=== PATIENT | male | born 1985 | race Caucasian/White ===

== ENCOUNTER 2020-01-14 11:47 | Day surgery (SDC) | payer BC, SELFPAY ==
[2020-01-14] VITALS (15 sets, daily range): BP systolic 117–157; BP diastolic 67–94; PULSE 71–112; RESP 14–18; TEMP 36.1–36.9; O2SAT 94–100; BMI 33.2
--- NOTE | ~2020-01-14 | CT_ITS ---
EXAMINATION: CT abdomen pelvis w con DATE: 01/14/2020 13:26 INDICATION: Lower abdominal pain. Low back pain. TECHNIQUE: Computed tomography (CT) of the abdomen and pelvis was performed with 100 cc Omnipaque 350 intravenous contrast. The dose-length product was 1207.35 mGy-cm. Automated exposure control and ite rative reconstruction technique were employed. COMPARISON: CT dated 12/16/2018 FINDINGS: Lung bases are unremarkable. Heart size normal. No significant pleural or pericardial effus ion. No significant vascular abnormality. No lymphadenopathy. The liver, spleen, pancreas, adrenal glands and kidneys are unremarkable. Gallbladder is present. The re is thickening of the appendix with mild surrounding inflammation, consistent with acute uncomplica juan appendicitis. No acute osseous abnormality. IMPRESSION: 1. Acute uncomplicated appendicitis. Reviewed, dictated and finalized at location A.
--- NOTE | 2020-01-14 11:55 | ECG_ITS ---
Measurements Intervals [place] Rate: 78 P: 17 [place]: 166 QRS: 43 QRSD: 89 T: 30 QT: 353 QTc: 403 Interpretive Statements SINUS RHYTHM ST ELEVATION IN DIFFUSE LEADS- PROBABLY EARLY REPOLARIZATION BASELINE ARTIFACT- I, II, III, AVR, V3-V4 BORDERLINE ECG Electronically Signed On 01-15-2020 7:44:39 CDT by Aditya Quinn D.O.
--- NOTE | 2020-01-14 12:23 | ED.GENADULT ---
HPI - General Adult General Chief complaint: Dizziness Stated complaint: back pain/n/syncope Time Seen by Provider: 01/14/20 12:17 Source: patient, family and EMS History of Present Illness HPI narrative: 34 years old white male was sitting in his office, felt tingling and pain across lower back spread all over his back then developed dizziness and nausea, and went to the bathroom and blacked out over there. No weakness. Patient came to the emergency room and blacked out again on the triage. Currently patient main complaint is lower back pain. told me that patient been having chronic lower back pain for a while, worse in the last 7 days. Patient denies any fever, chills, vomiting, diarrhea, abdominal pain, chest pain, headache. Patient reported having similar symptoms of blacking out approximately 1-1/2-year ago for unknown reasons. History of depression, psoriasis and chronic back pain. Patient smokes socially, drinks every week, does not use marijuana, denies other drug use. MD complaint: 34 years old Related Data Home Medications Medication Instructions Recorded Confirmed risankizumab-rzaa 75 mg/0.83 mL See Rx Instructions SUB-Q PER PKG 11/07/19 11/07/19 subcutaneous syringe DIR Allergies Allergy/AdvReac Type Severity Reaction Status Date / Time No Known Allergies Allergy Verified 01/14/20 15:23 Review of Systems Review of Systems: Narrative: CONSTITUTIONAL: Denies fever, chills, or sweats. EYES: Denies visual changes, redness, or discharge. ENT: Denies rhinorrhea, congestion, sore throat, or otalgia. CARDIOVASCULAR: Denies chest pain, palpitations, or edema. RESPIRATORY: Denies cough or dyspnea. GASTROINTESTINAL: Denies abdominal pain, nausea, vomiting, or diarrhea. GENITOURINARY: Denies dysuria or hematuria. SKIN: Denies rash or itching. MUSCULOSKELETAL: Lower back pain NEUROLOGIC: Denies headache, numbness, or weakness. PSYCHIATRIC: Anxiety and depression PMFSH Past Medical History Medical History (Updated 01/14/20 @ 15:23 by Tommie Barajas MD) External hemorrhoid Family history of colon cancer Keratoconus Psoriasis Wellness examination Family History Family History (Updated 12/18/13 @ 07:13 by DOCTOR UNKNOWN) Grandparent Family history of pancreatic cancer Family history of throat cancer Father Carcinoma of colon Hypertension Social History Social History Years smoked: 2 Smoking status: Light tobacco smoker Tobacco type: cigars Alcohol intake: current Drinks per week: 1 Substance use: never Substance use type: does not use Gender identity (if verbalized by the patient): Male Exam Narrative: Exam Narrative: General appearance: Well-developed, well-nourished Skin: Normal color Head: Normocephalic, nontraumatic Eyes: Clear conjunctiva ENT: Oropharynx normal, ears normal, nose normal Neck: Supple, nontender Chest and respiratory: Airway patent, no respiratory distress, no accessory muscle use Heart: Regular rate/rhythm Abdomen: Soft, nontender, no organomegaly, quiet bowel sounds Vascular: Normal peripheral pulses, normal capillary refill. Musculoskeletal: Normal range of motion, nontender back Neurologic: Alert and oriented ?3, RELATIONS MANAGER is normal as tested, no gross motor deficit Course Consultations Consultation #1: Dr. Hanson Date: 01/14/20 Time: 15:30 Vital Signs Vital signs: Vital Signs Temperature 36.3 C L 01/14/20 11:50 Pulse Rate 82 01/14/20 11:50 Respiratory Rate 18 01/14/20 11:50 Blood Pressure 134/78 01/14/20 11:50 Pulse Oximetry 98 01/14/20 11:50 Temperature 36.3 C L 01/14/20 11:50 Pul
[2020-01-14 12:29] LABS: Basophils Absolute Auto 0.1 K/mm3 (0.0-0.1); Basophils Percent Auto 0.4 % (0.2-1.2); Eosinophils Absolute Auto 0.1 K/mm3 (0-0.3); Eosinophils Percent Auto 0.6 % (0-4.4); Hematocrit 47.2 % (42.0-52.0); Hemoglobin 16.1 g/dL (14.0-18.0); Immature Granulocyte Absolute 0.22 K/mm3 (0.00-0.031); Immature Granulocyte Percent A 0.9 % (0-0.5); Lymphocytes Absolute Auto 2.55 K/mm3 (0.9-3.2); Lymphocytes Percent Auto 10.3 % (18.3-44.2); Mean Corpuscular HGB Conc 34.1 g/dl (32-36); Mean Corpuscular Hemoglobin 29.1 pg (26-34); Mean Corpuscular Volume 85.4 fl (80-100); Mean Platelet Volume 9.7 fl (7.4-10.4); Monocytes Absolute Auto 1.5 K/mm3 (0.1-0.6); Neutrophils Absolute Auto 20.2 K/mm3 (1.3-6.7); Neutrophils Percent Auto 81.8 % (45.5-73.1); Platelet Count Result 352 k/mm3 (150-375); Red Blood Count 5.53 M/mm3 (4.6-6.20); Red Cell Distribution Width 12.5 % (11.5-14.5); White Blood Count 24.7 K/mm3 (4.5-10.0)
[2020-01-14 12:37] LABS: Anion Gap 7 mmol/L (8-16); Blood Urea Nitrogen 18 mg/dL (9-20); Calcium 9.6 mg/dL (8.4-10.2); Carbon Dioxide 26 mmol/L (22-30); Chloride 104 mmol/L (98-107); Estimated CRCL calculation 143 ml/min; Estimated Glomerular Filt Rate > 60; Glucose 131 mg/dL (75-110); Potassium 3.8 mmol/L (3.4-5.0); Sodium 137 mmol/L (137-145)
[2020-01-14 12:43] LABS: Alveolar/Arterial O2 Gradient 20.5 mmHg; Base Excess ABG -0.5 mEq/l (+/-2.0); Fractional Inspired Oxygen 21 %; HCO3 ABG 24.7 mEq/l (22.0-26.0); Oxygen Content ABG 20.8 %vol (16.0-22.0); Oxygen Saturation ABG 95.3 % (95.0-100.0); Oxyhemoglobin 94.7 % THb (90.0-100.0); PCO2 ABG 42.7 mmHg (35.0-45.0); PO2 ABG 78.1 mmHg (80.0-100.0); PO2 FiO2 Ratio Arterial Blood 3.72 %; Total Hemoglobin 15.6 g/dL (12.0-18.0); pH ABG 7.381 (7.350-7.450)
[2020-01-14 12:44] LABS: Device ROOM AIR; Modified Allen's Test Pass; Site Drawn RIGHT RADIAL
[2020-01-14 13:41] LABS: Glucose Point of Care 133 (65-105)
[2020-01-14 15:29] LABS: Basophils Absolute Auto 0.1 K/mm3 (0.0-0.1); Basophils Percent Auto 0.4 % (0.2-1.2); Hematocrit 45.4 % (42.0-52.0); Hemoglobin 15.4 g/dL (14.0-18.0); Immature Granulocyte Absolute 0.14 K/mm3 (0.00-0.031); Immature Granulocyte Percent A 0.6 % (0-0.5); Lymphocytes Absolute Auto 1.12 K/mm3 (0.9-3.2); Lymphocytes Percent Auto 5.2 % (18.3-44.2); Mean Corpuscular HGB Conc 33.9 g/dl (32-36); Mean Corpuscular Hemoglobin 28.8 pg (26-34); Mean Platelet Volume 9.5 fl (7.4-10.4); Monocytes Absolute Auto 1.6 K/mm3 (0.1-0.6); Monocytes Percent Auto 7.6 % (2.6-8.5); Neutrophils Absolute Auto 18.7 K/mm3 (1.3-6.7); Neutrophils Percent Auto 86.2 % (45.5-73.1); Platelet Count Result 310 k/mm3 (150-375); Red Blood Count 5.34 M/mm3 (4.6-6.20); Red Cell Distribution Width 12.4 % (11.5-14.5); White Blood Count 21.7 K/mm3 (4.5-10.0)
[2020-01-14 15:31] LABS: Add Urine Microscopic? NO; Appearance Urine Clear (Clear); Bilirubin Urine Negative (Negative); Blood Urine Negative (Negative); Color Urine Yellow (Yellow); Glucose Urine UA Negative (Negative); Ketones Urine Negative (Negative); Leukocyte Esterase Ur Negative LEU/UL (Negative); Nitrate Urine Negative (Negative); Protein Urine Negative (Negative); Urobilinogen Urine Negative mg/dL (<2.0)
[2020-01-14 15:43] LABS: Alanine Aminotransferase 33 U/L (4-50); Albumin Level 4.3 g/dL (3.5-5.1); Alkaline Phosphatase 73 U/L (38-126); Anion Gap 5 mmol/L (8-16); Aspartate Amino Transferase 31 U/L (17-59); Bilirubin,Total 0.7 mg/dL (0.2-1.3); Blood Urea Nitrogen 18 mg/dL (9-20); Calcium 9.8 mg/dL (8.4-10.2); Carbon Dioxide 26 mmol/L (22-30); Chloride 104 mmol/L (98-107); Estimated CRCL calculation 128 ml/min; Estimated Glomerular Filt Rate > 60; Glucose 104 mg/dL (75-110); Lipase 96 U/L (23-300); Potassium 4.7 mmol/L (3.4-5.0); Sodium 135 mmol/L (137-145)
--- NOTE | 2020-01-14 15:58 | WPDANESEPPF ---
Anes - Initial Pre Proc Eval Procedure: Operation Date: 01/14/20 16:00 Proposed Procedures p Laparoscopic Appendectomy - Martha Hanson MD Date/Time: 01/14/20 15:58 Surgeon: Martha Hanson MD Pre Op Diagnosis: back pain/n/syncope Patient Data Age: 34 Gender: M Height: 5 ft 11 in Weight: 108 kg Last Vital Signs Temp 36.9 C 01/14/20 15:31 Pulse 83 01/14/20 15:31 Resp 16 01/14/20 15:31 BP 137/75 01/14/20 15:31 Pulse Ox 99 01/14/20 15:31 Allergies Allergy/AdvReac Type Severity Reaction Status Date / Time No Known Allergies Allergy Verified 01/14/20 15:23 Home Medications Medication Instructions Recorded Confirmed Type risankizumab-rzaa 75 mg/0.83 mL See Rx Instructions SUB-Q PER PKG 11/07/19 11/07/19 History subcutaneous syringe DIR valacyclovir 500 mg tablet 500 mg PO DAILY #33 tablet 11/07/19 11/07/19 Rx naproxen 500 mg tablet 500 mg PO BID #60 tablet 01/02/20 Rx Laboratory Tests 01/14/20 01/14/20 01/14/20 12:12 12:17 12:17 WBC 24.7 K/mm3 H K/mm3 (4.5-10.0) RBC 5.53 M/mm3 M/mm3 (4.6-6.20) Hgb 16.1 g/dL g/dL (14.0-18.0) Hct 47.2 % % (42.0-52.0) MCV 85.4 fl fl (80-100) MCH 29.1 pg pg (26-34) MCHC 34.1 g/dl g/dl (32-36) RDW 12.5 % % (11.5-14.5) Plt Count 352 k/mm3 k/mm3 (150-375) MPV 9.7 fl fl (7.4-10.4) Immature Gran % (Auto) 0.9 % H % (0-0.5) Neut % (Auto) 81.8 % H % (45.5-73.1) Lymph % (Auto) 10.3 % L % (18.3-44.2) Pine % (Auto) 6.0 % % (2.6-8.5) Eos % (Auto) 0.6 % % (0-4.4) Baso % (Auto) 0.4 % % (0.2-1.2) Lymph # (Auto) 2.55 K/mm3 K/mm3 (0.9-3.2) Pine # (Auto) 1.5 K/mm3 H K/mm3 (0.1-0.6) Eos # (Auto) 0.1 K/mm3 K/mm3 (0-0.3) Baso # (Auto) 0.1 K/mm3 K/mm3 (0.0-0.1) Abs Immat Gran (auto) 0.22 K/mm3 H K/mm3 (0.00-0.031) Absolute Neuts (auto) 20.2 K/mm3 H K/mm3 (1.3-6.7) Absolute Nucleated RBC 0.0 K/mm3 K/mm3 (0.0-0.012) Nucleated RBC % 0.0 % % (0.0-0.2) Puncture Site ABG pH ABG pCO2 ABG pO2 ABG PO2/FiO2 Ratio ABG HCO3 ABG O2 Saturation ABG O2 Content ABG Base Excess A-a Gradient Oxyhemoglobin Total Hemoglobin O2 Delivery Device O2 Liters/Min FiO2 Sodium 137 mmol/L mmol/L (137-145) Potassium 3.8 mmol/L mmol/L (3.4-5.0) Chloride 104 mmol/L mmol/L (98-107) Carbon Dioxide 26 mmol/L mmol/L (22-30) Anion Gap 7 mmol/L L mmol/L (8-16) BUN 18 mg/dL mg/dL (9-20) Creatinine 0.80 mg/dL mg/dL (0.7-1.3) Estim Creat Clear Calc 143 ml/min ml/min Estimated GFR > 60 (59 - ) Glucose 131 mg/dL H mg/dL (75-110) POC Capillary Glucose 133 mg/dl H mg/dl (65-105) Calcium 9.6 mg/dL mg/dL (8.4-10.2) Total Bilirubin AST ALT Alkaline Phosphatase Total Protein Albumin Lipase Urine Color Urine Appearance Urine pH Ur Specific [place] Urine Protein Urine Glucose (UA) Urine Ketones Ur Blood (Man) Urine Nitrate Urine Bilirubin Urine Urobilinogen Leukocyte Esterase Rfl 01/14/20 01/14/20 01/14/20 12:37 15:22 15:22 WBC 21.7 K/mm3 H K/mm3 (4.5-10.0) RBC 5.34 M/mm3 M/mm3 (4.6-6.20) Hgb 15.4 g/dL g/dL (14.0-18.0) Hct 45.4 % % (42.0-52.0) MCV 85.0 fl fl (80-100) MCH 28.8 pg pg (26-34) MCHC 33.9 g/
--- NOTE | 2020-01-14 16:17 | PM.IMHP ---
H&P: HPI History of Present Illness Date/Time: 01/14/20 16:17 Chief complaint: back pain/n/syncope Narrative: Dwayne Tafoya is a 34 year old male presenting c 1 d h/o severe lower back pain. Pt reports pain was so severe he had syncopal episode today. Pt reports prior to episode he had nausea, severe sweating. Pt reports a second syncopal episode in ED. Pt reports syncopal episode about a year and a half ago likely secondary to anxiety. Pt denies any abd pain, but has not had an appetite. Review of Systems Constitutional: Constitutional: Denies body ache(s), Denies chills, Denies fatigue, Denies lethargy, Denies night sweats and Denies weakness Eyes: Eyes: Reports no additional eye complaints ENT: Reports system reviewed and no additional complaints, except as documented Cardiovascular: Cardiovascular: Reports no additional cardiovascular complaints, Reports diaphoresis and Reports lightheadedness Respiratory: Respiratory: Reports no additional respiratory complaints Gastrointestinal: Gastrointestinal: Denies abdominal pain, Reports nausea and Denies vomiting Genitourinary: Genitourinary: Reports no additional male genitourinary complaints Musculoskeletal: Musculoskeletal: Reports back pain Integumentary/Breasts: Skin/Breast: Reports system reviewed and no additional complaints, except as docu Neurologic: Reports as per HPI Comments: syncopal episode x 2 Psychiatric: Psychiatric: Reports no additional psychiatric complaints PMFSH Past Medical History Medical History External hemorrhoid Family history of colon cancer Keratoconus Psoriasis Wellness examination Family History Family History Grandparent Family history of pancreatic cancer Family history of throat cancer Father Carcinoma of colon Hypertension Social History Social History Years smoked: 2 Smoking status: Light tobacco smoker Tobacco type: cigars Alcohol intake: current Drinks per week: 1 Substance use: never Substance use type: does not use Gender identity (if verbalized by the patient): Male Meds Home Medications and Allergies Home Medications Medication Instructions Recorded Confirmed Type risankizumab-rzaa 75 mg/0.83 mL See Rx Instructions SUB-Q PER PKG 11/07/19 01/14/20 History subcutaneous syringe DIR valacyclovir 500 mg tablet 500 mg PO DAILY #33 tablet 11/07/19 01/14/20 Rx naproxen [Naprosyn] 500 mg PO DAILY 01/14/20 01/14/20 History sertraline 25 mg PO DAILY 01/14/20 01/14/20 History sertraline 50 mg PO DAILY 01/14/20 01/14/20 History Allergies Allergy/AdvReac Type Severity Reaction Status Date / Time No Known Allergies Allergy Verified 01/14/20 15:23 Vital Signs Vital Signs - 24 hr 01/14/20 11:50 01/14/20 12:16 01/14/20 14:30 Temperature 36.3 C L Pulse Rate 82 79 80 Respiratory Rate 18 16 Blood Pressure 134/78 117/79 157/94 H Pulse Oximetry 98 95 01/14/20 14:31 01/14/20 14:33 01/14/20 14:38 Temperature Pulse Rate 88 112 H 85 Respiratory Rate 16 Blood Pressure 144/72 H 145/88 H 145/88 H Pulse Oximetry 100 01/14/20 15:31 01/14/20 15:55 Temperature 36.9 C 36.1 C L Pulse Rate 83 81 Respiratory Rate 16 16 Blood Pressure 137/75 138/87 Pulse Oximetry 99 99 Exam Const: General: comfortable and in distress mild HENMT: Mouth: Yes moist mucous membranes Eyes: General: appearance normal, both eyes and all related structures Neck: Neck: supple and no JVD Lymphatic: lymphadenopathy not noted Resp: Auscultation: clear to auscultation bilaterally Cardio: Rate: regular rate Rhythm: regular rhythm GI: Inspection: distended GI Palp: Yes Soft to palpation, No Tenderness to palpation present (GI), No Guarding due to palpation present (GI) and No Hernia present Skin: General skin exam: normal co
--- NOTE | 2020-01-14 16:23 | WPDHPUPDATE1 ---
History and Physical Update Update Date/Time: 01/14/20 16:23 History and Physical has been reviewed, including an updated exam of the patient. There are NO changes in the patient's condition. Risks, benefits, and alternatives have been discussed and questions answered. Patient agrees to proceed with procedure.
[2020-01-14] MEDS: KETOROLAC 30 MG/ML VIAL (*BKC) IV PUSH (16:30)
[2020-01-14] MEDS: BUPIVACAINE/EPINEPHRINE 0.5% 10 ML VIAL 30 ML INFILTRATE (16:48)
--- NOTE | 2020-01-14 17:12 | P.OP_ITS ---
Procedure Note - Detailed Date of procedure: 01/14/20 Pre-op diagnosis: back pain/n/syncope acute appendicitis Post-op diagnosis: same Procedure performed: Laparoscopic appendectomy Description of procedure: The patient was brought into the operating room placed in the supine position. After adequate induction of general anesthesia, the patient was prepped and draped in normal sterile fashion. A time-out was then done to verify the patient's identity as well as the procedure being performed. I began by making a 5 mm incision in the infraumbilical region. A 5 mm Optiview trocar within used to gain access into the peritoneal cavity. Once into the peritoneal cavity, CO2 gas was insufflated. After adequate pneumoperitoneum was achieved, the laparoscope was placed into the 5 mm trocar. Under direct visuali zation, I went ahead and placed a further 5 mm suprapubic port as well as a 12 mm port in the left lower abdomen. At this point, I was able to visualize cecum. The cecum was retracted both cephalad and medial, and this allowed us to expose the appendix. The appendix was noted to be very dilated, injected, and inflamed. There was no obvious perforation of the appendix. I then grasped the appendix near the tip of the appendix and retracted both anterior and lateral. This allowed exposure of the base of the appendix with the cecum. I then created a window with the Jelena dissector between the appendix and the mesoappendix at the base of the appendix. Once this was achieved, a vascular staple load on the Endo-YOHANA was placed through the 12 mm port site and subsequently transected the mesoappendix. I then reloaded the Endo-YOHANA with a blue staple load and transected the base of the appendix with the cecum. Once the appendiceal specimen was completely detached, a Endo pouch was placed through the 12 mm port site. The appendix was placed into the Endo pouch and removed through the 12 mm port site. The appendix will now be sent to pathology for further review. I then visualized the right lower quadrant, both staple lines were noted to be intact but slightly oozing. No arterial bleeding was noted. I gained hemostasis with cautery. I then placed a hemostatic powder on the staple lines. No other pathology was noted in the right lower quadrant or pelvis. I then moved the laparoscope to the 5 mm suprapubic port. I then visualized our port of entry at the 5 mm infraumbilical site. No iatrogenic injury or other pathology was seen in the upper abdomen. I then desufflated the abdomen and all ports were removed. The fascia of the 12 mm port site was closed with an 0 Vicryl figure of 8 suture. All port sites were then closed with 4 O Monocryl subcuticular suture. The patient tolerated the procedure well and was extubated in the operating room postoperatively. The patient will be transferred to the recovery room in stable condition. Anesthesia: GETA Surgeon: Martha Hanson MD Estimated blood loss (mL): 25 Drains: No Packing: No Pathology: yes Complications: No immediate complications Condition: stable Disposition: PACU Findings: Acute uncomplicated appendicitis
[2020-01-14] MEDS: LACTATED RINGERS 1,000 ML 30 ML IV CONT ×2 (17:21→17:32)
[2020-01-14] MEDS: fentaNYL CITRATE INJ (*CRX) 100 MCG/2 ML VIAL 25 MCG IV PUSH ×3 (17:40→17:56)
[2020-01-14] MEDS: oxyCODONE HCL (*CRX) 5 MG TAB IR PO (18:43)
== END 2020-01-14 19:17 | disposition home or self-care (01) ==
LOC: ANHED 15:23 → ANHSURGERY 15:33
PROVIDERS: Emergency Medicine; Emergency Provider Emergency Medicine; PCP Family Medicine; Visit Provider Surgery
PROC: 0DTJ4ZZ Resection of Appendix, Percutaneous Endoscopic Approach (ICD-10-PCS; CPT 44970; principal; 2020-01-14 16:00)
DX: K35.30 Acute appendicitis with localized peritonitis, without perforation or gangrene (principal); K36 Other appendicitis; R55 Syncope and collapse; L40.9 Psoriasis, unspecified; F17.290 Nicotine dependence, other tobacco product, uncomplicated; Z80.0 Family history of malignant neoplasm of digestive organs; E66.9 Obesity, unspecified; Z68.33 Body mass index [BMI] 33.0-33.9, adult
CPT/HCPCS: 44970; 36415; 36600; 74177; 80048; 80053; 81003; 82805; 82948; 83690; 85025; 88304; 93005; 96374; 99285; A9270; J0131; J0330; J1100; J1170; J1885; J2250; J2405; J2543; J2704; J3010; J7030; J7120; Q9967

== ENCOUNTER → 2020-05-26 10:25 | Outpatient (CLI) | payer BC, SELFPAY ==
--- NOTE | ~2020-05-26 | XR_ITS ---
XR_CERV2-3V_CR DATE: 05/26/2020 10:50 INDICATION: Neck strain TECHNIQUE: AP, open-mouth, lateral and swimmer views COMPARISON: None FINDINGS: There is reversal of cervical curvature. C1 and C2 are normally aligned and the odontoid process is intact. No fracture or dislocation or locked facet or prevertebral soft tissue swelling. There is anterior spurring at C6-7. Cervical interspaces are relatively preserved. IMPRESSION: Reversal cervical curvature and mild degenerative change Reviewed, dictated and finalized at Location A. Reviewed, dictated and finalized at location A. K TRIMMER
== END ==
PROVIDERS: PCP Family Medicine; Visit Provider Family Medicine
DX: S16.1XXA Strain of muscle, fascia and tendon at neck level, initial encounter (principal); M53.82 Other specified dorsopathies, cervical region
CPT/HCPCS: 72040

== ENCOUNTER → 2021-01-25 17:01 | Outpatient (CLI) | payer BC, SELFPAY ==
--- NOTE | ~2021-01-25 | MR_ITS ---
EXAMINATION: MR cervical spine wo con EXAM DATE: 01/25/2021 18:14 INDICATION: M54.2 - Cervicalgia. Neck, right-sided shoulder pain. TECHNIQUE: Multi-sequential, multiplanar MR images of the cervical spine were obtained without contra st. Axial T2, axial T2 MERGE sequence. Sagittal T1, T2, T2 fat saturation images also obtained. Th ere is no prior study for comparison. FINDINGS: Some artifact at the skull base from dental hardware. There is mild loss of the C6-7 disc h eight with disc bulge. The vertebral body and disc heights are otherwise well maintained. The vertebr al bodies are aligned in the AP dimension. The spinal cord signal intensity and intrinsic morphology is normal. Cervicomedullary junction is normal in appearance. There are no suspicious marrow signal a bnormalities. Paraspinal soft tissue is unremarkable. Level by level evaluation: C2-C3: Disc does not extend beyond the endplate margin. Uncovertebral joint arthropathy: None. Facet joint arthropathy: Mild bilateral. Neural foraminal stenosis: No stenosis. Central canal stenosis: No stenosis. C3-C4: Disc does not extend beyond the endplate margin. Uncovertebral joint arthropathy: Mild to moderate right, mild left. Facet joint arthropathy: Mild to moderate bilateral. Neural foraminal stenosis: Moderate right, mild left. Central canal stenosis: No stenosis. C4-C5: Disc does not extend beyond the endplate margin. Uncovertebral joint arthropathy: Mild to moderate bilateral. Facet joint arthropathy: Mild to moderate bilateral. Neural foraminal stenosis: Mild to moderate right, mild left. Central canal stenosis: No stenosis. C5-C6: Disc does not extend beyond the endplate margin. Uncovertebral joint arthropathy: Mild to moderate bilateral. Facet joint arthropathy: Mild to moderate bilateral. Neural foraminal stenosis: Mild to moderate bilateral, right more than left. Central canal stenosis: No stenosis. C6-C7: There is a mild diffuse disc bulge. Uncovertebral joint arthropathy: Moderate right, mild to moderate left. Facet joint arthropathy: Mild to moderate bilateral. Neural foraminal stenosis: Moderate right, mild left. Central canal stenosis: Mild. C7-T1: Disc does not extend beyond the endplate margin. Uncovertebral joint arthropathy: Mild to moderate right, mild left. Facet joint arthropathy: Mild bilateral. Neural foraminal stenosis: Moderate to severe right, mild left. Central canal stenosis: No stenosis. IMPRESSION: 1. Cervical spondylosis with the right C7-T1 neural foramina most narrowed on exam. Reviewed, dictated and finalized at location A.
--- NOTE | ~2021-01-25 | XR_ITS ---
XR shoulder LT min 2V DATE: 01/25/2021 18:03 INDICATION: Left shoulder pain TECHNIQUE: 4 views COMPARISON: None FINDINGS: No fracture or dislocation, periosteal reaction or bone destruction or abnormal soft tissue calcification. Normal alignment at the acromioclavicular and glenohumeral joints. IMPRESSION: Negative Reviewed, dictated and finalized at location A. IMPRESSION: Negative
== END ==
PROVIDERS: PCP Family Medicine; Visit Provider Physician Assistant
DX: M25.512 Pain in left shoulder (principal); M47.813 Spondylosis without myelopathy or radiculopathy, cervicothoracic region; M48.03 Spinal stenosis, cervicothoracic region
CPT/HCPCS: 72141; 73030

== ENCOUNTER → 2021-09-02 10:18 | Outpatient (CLI) | payer BC, SELFPAY ==
--- NOTE | ~2021-09-02 | XR_ITS ---
XR elbow RT min 3V DATE: 09/02/2021 10:34 INDICATION: Right elbow pain TECHNIQUE: 4 views COMPARISON: None FINDINGS: Prominent dorsal olecranon process spur. There is spurring of the coronoid process of the p roximal ulna. No fracture or dislocation or joint effusion. No periosteal reaction or bone destruction. IMPRESSION: Olecranon process and coronoid process spurring Reviewed, dictated and finalized at location B.
== END ==
PROVIDERS: PCP Family Medicine; Visit Provider Family Medicine
DX: M25.521 Pain in right elbow (principal); M77.8 Other enthesopathies, not elsewhere classified
CPT/HCPCS: 73080

== ENCOUNTER 2021-11-25 00:17 | Day surgery (SDC) | payer BC, SELFPAY ==
[2021-11-18 15:27] VITALS: BMI 34.2
--- NOTE | 2021-11-18 15:57 | SUR.PREOP ---
Report to the Outpatient Waiting Room, entrance under the green pavilion located off [facility], at time 1100 on date 11/25/21. OR Time: 1300. - You and your visitor will be asked a series of questions to screen for COVID 19 for your protection. - Only one visitor is allowed at this time. - The patient visitor is requested to leave or wait in car when not with patient. - A mask is required within the hospital. Patients may have clear liquids (water, carbonated beverages, clear teas, apple juice) until 3 hours prior to surgery with a maximum of 20 ounces. - No food from midnight until time of surgery - Infants may have breast milk until 4 hours before surgery, infant formula 6 hours prior to surgery. - Children will be allowed to drink immediately following surgery. If applicable, please bring a bottle or sippy cup to assist with drinking. Juice, water, soda, and popsicles are readily available. For infants on formula, please bring formula the day of surgery. Pacifiers are allowed. Take the following medications with a SIP of water the morning of surgery: Buspirone Medications to discontinue per physician: Vitamins/supplements 3 days, Naproxen 7 days Date to take last dose: Vitamins/supplements 11/22/21, Naproxen 11/18/21 Please no make-up, nail arabic, hairspray, perfume, deodorant, or body powder the day of surgery. No jewelry (including any body piercings) or valuables the day of surgery, leave them at home. Please take a shower or bath the night before, or the morning of, surgery with an antibacterial soap. Wear comfortable, loose fitting clothing. Children are encouraged to wear pajamas. - Jewelry must be removed prior to entering the operating room. Rings and piercings that are not removed may be cut off. - The hospital will not accept responsibility for valuables. - Please leave all valuables, including medications, at home the day of surgery. If you are going home after surgery, a licensed local company truck driver must drive you home. - NO public transportation without another adult. - We recommend that an adult stay with you for 24 hours following discharge. - We also recommend that you do not drive, make important decision, drink alcoholic beverages, or take any drugs that were not prescribed by your health care provider for at least 24 hours after your discharge time. For Pediatric surgeries, we recommend two adults accompany the child home (only one inside the building at this time). Follow any additional instructions given to you from your surgeon. If you or anyone in your household have experienced Covid symptoms in the past week, please notify your surgeon or the nurse liaison at the phone number below for possible testing. Telephone instructions given to patient____and asked if any additional questions and then verbalized understanding. Patient advised to call surgeon office or pre surgery nurse liaison [phone] if any additional questions.
--- NOTE | 2021-11-24 14:39 | WPDANESEPPF ---
Anes - Initial Pre Proc Eval Procedure: Operation Date: 11/25/21 12:00 Proposed Procedures p Excision of Olecranon Exostosis Right Elbow - Oneil Chaidez MD Date/Time: 11/24/21 14:39 Surgeon: Oneil Chaidez MD Pre Op Diagnosis: right elbow osteophytes, right triceps tendonitis Patient Data Age: 36 Gender: M Height: 1.8 m Weight: 111.3 kg Allergies Allergy/AdvReac Type Severity Reaction Status Date / Time No Known Allergies Allergy Verified 11/25/21 10:59 Home Medications Medication Instructions Recorded Confirmed Type sertraline 25 mg tablet 25 mg PO HS 01/14/20 11/18/21 History sertraline 50 mg tablet 50 mg PO HS 01/14/20 11/18/21 History buspirone 5 mg tablet 5 mg PO TID #30 tabs 05/24/20 11/18/21 Rx naproxen 500 mg tablet 500 mg PO BID PRN pain #60 tabs 01/10/21 11/18/21 Rx valacyclovir 500 mg tablet 500 mg PO DAILY #33 tabs 06/14/21 11/18/21 Rx (Valtrex) secukinumab 150 mg/mL subcutaneous 150 mg subcut MONTHLY 09/02/21 11/18/21 History syringe (Cosentyx 300 mg/2 Syringes () testosterone cypionate 100 mg/mL 100 mg IM MONTHLY 09/02/21 11/18/21 History intramuscular oil multivitamin with minerals-folic 1 tablet PO DAILY 11/18/21 11/18/21 History acid 0.4 mg tablet trazodone 50 mg tablet 50 mg PO HS sleep 11/25/21 11/25/21 History Patient hx anesthesia problems: none Family hx anesthesia problems: none Results Review: All pre-operative results and documents have been reviewed as part of the pre-operative evaluation. [facility] Past Medical History Medical History (Updated 11/24/21 @ 14:40 by Dani Alcala MD) Anxiety Depression External hemorrhoid Family history of colon cancer Keratoconus Obesity, Class II, BMI 35-39.9 Psoriasis Wellness examination Surgical History Surgical History (Updated 11/24/21 @ 14:40 by Dani Alcala MD) Corneal transplant status History of cornea transplant (~02/12/17) History of laparoscopic appendectomy 01/14/2020 Hx of neck surgery (~04/18/21) Mar Family History Family History Grandparent Family history of pancreatic cancer Family history of throat cancer Father Carcinoma of colon Hypertension Social History Social History Years smoked: 2 Smoking status: Never smoker Tobacco type: cigars Alcohol intake: current Drinks per week: 1 Substance use: never Substance use type: does not use Living arrangements: with family Gender identity (if verbalized by the patient): Male Sexual Orientation (if Verbalized by the Patient): Straight or Heterosexual Spiritual care concerns: No Anes - Eval Final PreProcedure Day of Procedure 11/24/21 14:39 Patient weight: obese Heart: regular rate and rhythm Lungs: clear to auscultation Airway: Mallampati scale class II Neurological: alert and oriented Last oral intake: 6 hours ASA classification: III Emergent: yes Anesthetic plan: proceed Anesthesia type and monitoring: general LMA and standard monitoring Results Review: All pre-operative results and documents have been reviewed as part of the pre-operative evaluation. Informed Consent: The patient's anesthetic plan and its attendant risks and benefits were discussed with the patient/family/POA. Questions were solicited and answers provided to the satisfaction of the patient/family/POA.
[2021-11-25] VITALS (10 sets, daily range): BP systolic 107–162; BP diastolic 67–102; PULSE 66–112; RESP 11–16; TEMP 35.9–36.2; O2SAT 87–98
[2021-11-25] MEDS: ACETAMINOPHEN 500 MG TABLET 1000 MG PO (10:37)
[2021-11-25] MEDS: LACTATED RINGERS 1,000 ML 30 ML IV CONT (10:50)
[2021-11-25] MEDS: KETOROLAC 15 MG/ML VIAL (*BKC) IV PUSH (11:43)
--- NOTE | 2021-11-25 11:59 | WPDHPUPDATE1 ---
History and Physical Update Update Date/Time: 11/25/21 11:59 History and Physical has been reviewed, including an updated exam of the patient. There are NO changes in the patient's condition. Risks, benefits, and alternatives have been discussed and questions answered. Patient agrees to proceed with procedure.
[2021-11-25] MEDS: ceFAZolin 2 GM/D5W 50 ML 2 GM/50 ML BAG IVPB (12:04)
[2021-11-25] MEDS: BUPIVACAINE HCL 0.5% PF 30 ML VIAL INFILTRATE (12:33)
--- NOTE | 2021-11-25 13:52 | SUR.PHASEI ---
Encouraging deep breathing and coughing which patient does well. Not short of breath but continues to sat 87% on room air and tachycardia 108. Placed on O2 2l nc.
--- NOTE | 2021-11-25 14:12 | SUR.PHASEI ---
Called Dr Alcala about hypoxia.
--- NOTE | 2021-11-25 16:40 | W.PM.PROC2 ---
Procedure Note - Detailed Date of Procedure 11/25/21 Pre-op Diagnosis right elbow olecranon osteophyte, right triceps tendonitis Post-op Diagnosis Same Procedure Performed Right elbow olecranon exostosis excision Surgeon Oneil Chaidez MD Professional Services Specialist La Tariq PA-C Anesthesia General Indications Focal pain at the olecranon bursa and exostosis noted radiographically. Findings Unstable exostosis superficial to the biceps tendon insertion. Excision accomplished without significant disruption of the tendon fibers. Significant swelling and chronic changes at the olecranon bursa adjacent to the exostosis. Description of Procedure General anesthetic was administered. The arm was prepped and draped in usual sterile fashion with a well-padded tourniquet on the arm. Longitudinal incision created over the triceps insertion. Careful dissection through the bursa. It was inflamed and excised. The osteophyte was carefully exposed sharply. The [place] blade was used to carefully remove the bony excrescence from the surface of the triceps tendon insertion. The edge of the remaining olecranon at the ulna was carefully rongeured and smoothed with the rasp. Copious irrigation performed. Remaining fibers and periosteum were repaired using interrupted 1. Vicryl suture followed by 3-0 Monocryl. Running 4-0 Monocryl placed on the skin. Sterile dressing with Steri-Strips. Posterior splint for protection. Minimal blood loss. Tourniquet released prior to closure. Estimated Blood Loss 1 Drains No Pathology None sent Complications No immediate complications Condition Stable Disposition PACU [facility] Billing Surgery - Charge Forward: Surgery Billing
== END 2021-11-25 15:49 | disposition home or self-care (01) ==
PROVIDERS: PCP Family Medicine; Visit Provider Orthopaedic Surgery
PROC: (CPT 24110; principal; 2021-11-25 12:00)
DX: M25.721 Osteophyte, right elbow (principal); M77.8 Other enthesopathies, not elsewhere classified; M19.021 Primary osteoarthritis, right elbow; F41.9 Anxiety disorder, unspecified; F32.A Depression, unspecified; L40.9 Psoriasis, unspecified; E66.9 Obesity, unspecified; Z68.36 Body mass index [BMI] 36.0-36.9, adult
CPT/HCPCS: 24120; A4565; A9270; J0690; J1100; J1885; J2250; J2405; J2704; J3010; J7120

== ENCOUNTER 2022-07-09 14:55 | Emergency (ER) | payer BC, SELFPAY ==
[2022-07-09 15:09] VITALS: BP 155/98; PULSE 92; RESP 16; TEMP 37.9; O2SAT 97
--- NOTE | 2022-07-09 15:57 | ED.URI ---
HPI - URI/Sore Throat General Chief Complaint: Upper Respiratory Infection Stated Complaint: Fever/Bodyaches Time Seen by Provider: 07/09/22 15:57 Source: patient, RN notes reviewed and old records reviewed Mode of arrival: ambulatory Limitations: no limitations History of Present Illness HPI Narrative: 36-year-old male presents to the [facility] with complaints of sore throat, fever and body aches since yesterday tested positive for strep last week. Related Data Home Medications Medication Instructions Recorded Confirmed sertraline 25 mg tablet 25 mg PO HS 01/14/20 07/09/22 sertraline 50 mg tablet 50 mg PO HS 01/14/20 07/09/22 secukinumab 150 mg/mL subcutaneous 150 mg subcut MONTHLY 09/02/21 07/09/22 syringe (Cosentyx 300 mg/2 Syringes () testosterone cypionate 100 mg/mL 100 mg IM MONTHLY 09/02/21 07/09/22 intramuscular oil multivitamin with minerals-folic 1 tablet PO DAILY 11/18/21 07/09/22 acid 0.4 mg tablet trazodone 50 mg tablet 50 mg PO HS sleep 11/25/21 07/09/22 Allergies Allergy/AdvReac Type Severity Reaction Status Date / Time No Known Allergies Allergy Verified 07/09/22 15:16 Review of Systems Review of Systems: All systems reviewed & are unremarkable except as noted in HPI and below Constitutional: Constitutional: Reports as per HPI and Reports fever(s) Eyes: Eyes: Reports no additional eye complaints ENT: Reports as per HPI and Reports sore throat Cardiovascular: Cardiovascular: Reports no additional cardiovascular complaints, Denies chest pain and Denies dyspnea Respiratory: Respiratory: Reports no additional respiratory complaints, Denies chest congestion, Denies cough and Denies dyspnea Gastrointestinal: Gastrointestinal: Reports no additional gastrointestinal complaints, Denies abdominal pain, Denies nausea and Denies vomiting Musculoskeletal: Musculoskeletal: Reports no additional musculoskeletal complaints Integumentary/Breasts: Skin/Breast: Reports system reviewed and no additional complaints, except as docu Neurologic: Reports system reviewed and no additional complaints, except as documented Psychiatric: Psychiatric: Reports no additional psychiatric complaints Allergic/Immunologic: Allergic/Immunologic: Reports no additional allergic/immunologic complaints PMFSH Past Medical History Medical History Anxiety Depression External hemorrhoid Family history of colon cancer Keratoconus Obesity, Class II, BMI 35-39.9 Psoriasis Wellness examination Surgical History Surgical History Corneal transplant status History of cornea transplant (~02/12/17) History of laparoscopic appendectomy 01/14/2020 Hx of neck surgery (~04/18/21) Mar Family History Family History Grandparent Family history of pancreatic cancer Family history of throat cancer Father Carcinoma of colon Hypertension Social History Social History Years smoked: 2 Smoking status: Never smoker Tobacco type: cigars Alcohol intake: current Drinks per week: 1 Substance use: never Substance use type: does not use Living arrangements: with family Occupation/Education: occupation Gender identity (if verbalized by the patient): Male Sexual Orientation (if Verbalized by the Patient): Straight or Heterosexual Spiritual care concerns: No Comments At the time of my signature, I reviewed and agree with the nursing past medical, surgical, social, and family history. There is no relevant family history pertinent to the patient complaint. Exam Const: General: cooperative, healthy appearing, comfortable, no acute distress, well developed, alert and well nourished Nutritional Appearance: well nourished and obese Orientation/consciousness: patient oriented x3 Li
== END 2022-07-09 16:08 | disposition home or self-care (01) ==
PROVIDERS: Emergency Provider Nurse Practitioner; PCP Family Medicine
DX: J02.0 Streptococcal pharyngitis (principal); F41.9 Anxiety disorder, unspecified; F32.A Depression, unspecified; E66.9 Obesity, unspecified; Z68.34 Body mass index [BMI] 34.0-34.9, adult; Z94.7 Corneal transplant status
CPT/HCPCS: 87880; 99213; G0463

== ENCOUNTER 2022-09-05 15:19 | Outpatient (CLI) | payer BC, SELFPAY ==
--- NOTE | ~2022-09-05 | XR_ITS ---
Lumbosacral Spine: AP, oblique, and lateral views Clinical History: Pain Findings: The normal lordotic curve is maintained. The vertebral bodies and posterior elements are i ntact. There are minimal degenerative disc and facet joint degenerative changes. The sacroiliac join ts are normally outlined. Impression: Minimal degenerative spondylosis. Reviewed, dictated and finalized at location . Impression: Minimal degenerative spondylosis.
--- NOTE | ~2022-09-05 | XR_ITS ---
EXAMINATION: XR finger 3rd RT min 2V DATE: 09/05/2022 15:50 INDICATION: Pain at the right third distal interphalangeal joint. TECHNIQUE: Dorsal palmar, lateral and 2 oblique views of the right third digit were obtained COMPARISON: None FINDINGS: Alignment is normal. No fracture. Minimal polyarticular osteoarthritis characterized by either tiny m arginal osteophytes are minimal nonuniform joint space narrowing at the first carpometacarpal, second -fourth metacarpophalangeal and at the second and third proximal and third distal interphalangeal nidhi nts. No erosions to suggest inflammatory arthritis. Soft tissues are unremarkable. IMPRESSION: 1. Typical distribution of minimal osteoarthritis in the right hand including at the third distal int erphalangeal joint. No erosions to suggest an inflammatory arthritis. Reviewed, dictated and finalized at location A. IMPRESSION: 1. Typical distribution of minimal osteoarthritis in the right hand including a t the third distal interphalangeal joint. No erosions to suggest an inflammator y arthritis.
== END 2022-09-05 15:20 | disposition home or self-care (01) ==
PROVIDERS: PCP Family Medicine; Visit Provider Physician Assistant
DX: M47.816 Spondylosis without myelopathy or radiculopathy, lumbar region (principal); M79.644 Pain in right finger(s)
CPT/HCPCS: 72110; 73140

== ENCOUNTER → 2022-11-01 08:45 | Outpatient (CLI) | payer BC, SELFPAY ==
--- NOTE | ~2022-11-01 | MR_ITS ---
MRI of the lumbar spine Clinical History: Radiculopathy Technique: Axial T2-weighted images, and sagittal T1-weighted, T2-weighted, and T2 fat-sat images wer e acquired. Findings: There is no fracture or dislocation of the lumbar spine. Vertebral bodies maintain normal h eight and alignment. No bone marrow signal reality seen. At L1-L2, there is no disc bulge or herniation. There is minimal facet arthropathy. No spinal canal s tenosis or neural foraminal narrowing. At L2-L3, there is mild degenerative disc narrowing with minimal disc bulge and mild facet arthropath y. No central canal stenosis or neural foraminal narrowing. At L3-L4, there is no disc bulge or herniation. There is mild facet arthropathy. No spinal canal sten osis or neural foraminal narrowing. At L4-L5, there is mild disc, minimal disc bulge and probable tiny annular fissure. No spinal canal s tenosis or neural foraminal narrowing. At L5-S1, there is right foraminal disc protrusion, resulting in moderate right neural foraminal narr owing. Left neural foramen preserved. No central canal stenosis. Paravertebral soft tissues are unremarkable. Impression: Right foraminal disc protrusion at L5-S1, resulting in moderate right neural foraminal narrowing. Additional minimal degenerative changes, as above. Reviewed, dictated and finalized at location . Impression: Right foraminal disc protrusion at L5-S1, resulting in moderate right neural fo raminal narrowing. Additional minimal degenerative changes, as above.
== END ==
PROVIDERS: PCP Neurological Surgery; Visit Provider Neurological Surgery
DX: M51.27 Other intervertebral disc displacement, lumbosacral region (principal); M51.17 Intervertebral disc disorders with radiculopathy, lumbosacral region
CPT/HCPCS: 72148

== ENCOUNTER 2023-07-11 08:07 | Outpatient (CLI) | payer BC, SELFPAY ==
--- NOTE | ~2023-07-11 | XR_ITS ---
Left elbow Technique: AP, oblique, and lateral views were obtained. Clinical History: Olecranon bursitis COMPARISON: 09/08/2022 Findings: No acute fracture or dislocation is seen. Osseous alignment is anatomic. Joint spaces are p reserved. There is enthesopathic change at the triceps tendon insertion. There is no displacement of the fat pads, and soft tissues are otherwise unremarkable. Impression: Enthesopathic change at the triceps tendon insertion. Reviewed, dictated and finalized at location M. Impression: Enthesopathic change at the triceps tendon insertion.
== END 2023-07-11 08:08 | disposition home or self-care (01) ==
LOC: ANHIMG 08:10
PROVIDERS: PCP Family Medicine; Visit Provider Orthopaedic Surgery
DX: M70.22 Olecranon bursitis, left elbow (principal)
CPT/HCPCS: 73080

== ENCOUNTER 2023-08-23 01:03 | Day surgery (SDC) | payer BC, SELFPAY ==
[2023-08-14 09:26] VITALS: BMI 34.9
--- NOTE | 2023-08-14 09:27 | PC.NURSE ---
Report to the Outpatient Waiting Room, entrance under the green pavilion located off [facility], at time _1130_ on date _[id number]_. Planned Procedure Time: _1330_. Time changes happen often and if your time is changed the preop area will call you the afternoon before. - You and your visitor will be asked to self-screen and do not enter if you have any COVID symptoms. - A mask is optional within the hospital at this time. Patients may have clear liquids (water, carbonated beverages, clear teas, apple juice) until 3 hours prior to surgery with a maximum of 20 ounces. - No food from midnight until time of surgery Take the following medications with a SIP of water the morning of surgery: ___None DO NOT STOP ANY OF YOUR OTHER PRESCRIPTION MEDICATIONS PRIOR TO SURGERY ?EXCEPT THE FOLLOWING Medications to discontinue per physician Multivitamin Date to take last [id number] Please no make-up, nail thai, hairspray, perfume, deodorant, or body powder the day of surgery. No jewelry (including any body piercings) or valuables the day of surgery, leave them at home. Please take a shower or bath the night before, or the morning of, surgery with an antibacterial soap. Wear comfortable, loose fitting clothing. - Jewelry must be removed prior to entering the operating room. Rings and piercings that are not removed may be cut off. - The hospital will not accept responsibility for valuables. - Please leave all valuables, including medications, at home the day of surgery. If you are going home after surgery, a licensed pile driver operator must drive you home. - NO public transportation without another adult if you receive anesthesia. - We recommend that an adult stay with you for 24 hours following discharge. - We also recommend that you do not drive, make important decision, drink alcoholic beverages, or take any drugs that were not prescribed by your health care provider for at least 24 hours after your discharge time. Follow any additional instructions given to you from your surgeon. If you or anyone in your household have experienced Covid symptoms in the past week, please notify your surgeon or the nurse liaison at the phone number below for possible testing. Telephone instructions given to __Dwayne__and asked if any additional questions and then verbalized understanding. Patient advised to call surgeon office or pre surgery nurse liaison [phone] if any additional questions.
--- NOTE | 2023-08-22 12:50 | WPDANESEPPF ---
Anes - Initial Pre Proc Eval Procedure: Operation Date: 08/23/23 13:30 Proposed Procedures p Excision of Left Elbow Olecranon Exostosis - Oneil Chaidez MD Date/Time: 08/22/23 12:50 Surgeon: Oneil Chaidez MD Pre Op Diagnosis: Lt Elbow Olecranon Bursitis Patient Data Age: 38 Gender: M Height: 1.8 m Weight: 113.6 kg Allergies Allergy/AdvReac Type Severity Reaction Status Date / Time No Known Allergies Allergy Verified 08/23/23 11:11 Home Medications Medication Instructions Recorded Confirmed Type sertraline 25 mg tablet 25 mg PO HS 01/14/20 08/14/23 History sertraline 50 mg tablet 50 mg PO HS 01/14/20 08/14/23 History testosterone cypionate 100 mg/mL 100 mg IM MONTHLY 09/02/21 08/14/23 History intramuscular oil multivitamin with minerals-folic 1 tablet PO DAILY 11/18/21 08/14/23 History acid 0.4 mg tablet trazodone 50 mg tablet 50 mg PO HS sleep 11/25/21 08/14/23 History valacyclovir 500 mg tablet See Rx Instructions .Route 04/09/23 08/14/23 Rx .COMPLEX #99 tabs naproxen 500 mg tablet See Rx Instructions .Route 07/27/23 08/23/23 Rx .COMPLEX #60 tabs secukinumab 150 mg/mL subcutaneous 150 mg subcut MONTHLY 08/14/23 08/14/23 History pen injector (Cosentyx Pen 300 mg/2 Pens () omeprazole 40 mg capsule,delayed 40 mg PO QAM #30 caps 08/22/23 Rx release oxycodone-acetaminophen 5 mg-325 1 - 2 tablet PO Q4-6H PRN pain #30 08/23/23 Rx mg tablet tabs Patient hx anesthesia problems: none Family hx anesthesia problems: none Results Review: All pre-operative results and documents have been reviewed as part of the pre-operative evaluation. [facility] Past Medical History Medical History (Updated 08/22/23 @ 12:51 by Alfredo Jimenez DO) Anxiety Asthma Depression External hemorrhoid Family history of colon cancer Keratoconus Obesity, Class II, BMI 35-39.9 Psoriasis Wellness examination Surgical History Surgical History (Updated 08/22/23 @ 12:51 by Alfredo Jimenez DO) Corneal transplant status History of cornea transplant (~02/12/17) History of laparoscopic appendectomy 01/14/2020 Hx of neck surgery (~04/18/21) Mar -C6-7 titanium disc Family History Family History Grandparent Family history of pancreatic cancer Family history of throat cancer Father Carcinoma of colon Hypertension Social History Social History (Updated 08/23/23 @ 12:15 by Alfredo Jimenez DO) Years smoked: 2 Smoking status: Never smoker Tobacco type: cigars Alcohol intake: current Drinks per week: 1 Substance use: never Substance use type: does not use Do You Feel Safe in your Home?: Yes Lack of Transportation: No Lack of Food: Never True Current Housing: I Have Housing Concerned About Future Housing: No Difficulty Paying Gas/Electric Bills: No Difficulty Paying for Meds: No Currently Unemployed: No Education: Master's Degree or Higher Difficulty w/ Childcare or Family Care: No Living arrangements: with family Occupation/Education: occupation Gender identity (if verbalized by the patient): Male Sexual Orientation (if Verbalized by the Patient): Straight or Heterosexual Spiritual care concerns: No Anes - Eval Final PreProcedure Day of Procedure 08/22/23 12:50 Patient weight: overweight Heart: regular rate and rhythm Lungs: clear to auscultation Airway: Mallampati scale class II Neurological: alert and oriented Last oral intake: >/= 8 hours ASA classification: II Emergent: no Anesthetic plan: proceed Anesthesia type and monitoring: general LMA and standard monitoring Results Review: All pre-operative results and documents have been reviewed as part of the pre-operative evaluation. Informed Consent: The patient's anesthetic plan and its attendant risks and benefits were discussed with the patient/family/POA. Questions were solicited an
[2023-08-23] VITALS (9 sets, daily range): BP systolic 130–148; BP diastolic 66–97; PULSE 80–99; RESP 10–20; TEMP 36.2–36.6; O2SAT 93–100
--- NOTE | 2023-08-23 07:08 | WPDHPUPDATE1 ---
History and Physical Update Update Date/Time: 08/23/23 07:08 History and Physical has been reviewed, including an updated exam of the patient. There are NO changes in the patient's condition. Risks, benefits, and alternatives have been discussed and questions answered. Patient agrees to proceed with procedure.
[2023-08-23] MEDS: KETOROLAC 15 MG/ML VIAL (*BKC) IV PUSH (11:00)
[2023-08-23] MEDS: LACTATED RINGERS 1,000 ML 30 ML IV CONT (11:00)
[2023-08-23] MEDS: ACETAMINOPHEN 500 MG TABLET 1000 MG PO (11:00)
--- NOTE | 2023-08-23 14:02 | W.PM.PROC2 ---
Procedure Note - Detailed Date of Procedure 08/23/23 Pre-op Diagnosis Left elbow olecranon osteophyte and triceps tendinitis. Post-op Diagnosis Same Procedure Performed Left elbow olecranon exostosis excision. Surgeon Oneil Chaidez MD Anesthesia General Indications Focal pain at the calcific exostosis at the triceps insertion on the olecranon. Growth noted radiographically and increased pain. Findings Unstable exostosis at the triceps tendon insertion. Bony excrescence excised. Hypertrophic bursa tissue excised. Description of Procedure General anesthetic was administered.? The arm was prepped and draped in usual sterile fashion with a well-padded tourniquet on the arm.? Longitudinal incision created over the triceps insertion.? Careful dissection through the bursa.? It was inflamed and excised.? The osteophyte was carefully exposed sharply.? The [place] blade was used to carefully remove the bony excrescence from the surface of the triceps tendon insertion.? The edge of the remaining olecranon at the ulna was carefully rongeured and smoothed with the rasp.? Copious irrigation performed.? Remaining fibers and periosteum were repaired using interrupted #1 Vicryl suture followed by 3-0 Monocryl.? Running 4-0 Monocryl placed on the skin.? Sterile dressing with Steri-Strips.? Posterior splint for protection.? Minimal blood loss.? Tourniquet released prior to closure. Estimated Blood Loss 5 Pathology None sent Complications No immediate complications Condition Stable Disposition PACU [facility] Billing Surgery - Charge Forward: Surgery Billing
== END 2023-08-23 15:15 | disposition home or self-care (01) ==
PROVIDERS: PCP Family Medicine; Visit Provider Orthopaedic Surgery
PROC: (CPT 24110; principal; 2023-08-23 13:30)
DX: M70.22 Olecranon bursitis, left elbow (principal); M25.722 Osteophyte, left elbow; M77.8 Other enthesopathies, not elsewhere classified; F41.9 Anxiety disorder, unspecified; F32.A Depression, unspecified; J45.909 Unspecified asthma, uncomplicated; F17.290 Nicotine dependence, other tobacco product, uncomplicated; Z79.891 Long term (current) use of opiate analgesic; Z79.1 Long term (current) use of non-steroidal anti-inflammatories (NSAID); Z79.85 Long-term (current) use of injectable non-insulin antidiabetic drugs; Z98.890 Other specified postprocedural states; Z80.0 Family history of malignant neoplasm of digestive organs; Z80.1 Family history of malignant neoplasm of trachea, bronchus and lung
CPT/HCPCS: 24120; A4565; A9270; J1100; J1885; J2250; J2405; J2704; J3010; J7120

== ENCOUNTER 2023-12-03 11:12 | Outpatient (CLI) | payer BC, SELFPAY ==
--- NOTE | ~2023-12-03 | XR_ITS ---
XR knee RT min 4V Ordering provider: Inderjit Hook PA-C History: . M25.561 - Pain in right knee . Comparison: None. FINDINGS: BONES: No acute fracture or dislocation. JOINT SPACES: Normal. SOFT TISSUES: Soft tissue swelling seen anterior to the patella. IMPRESSION: No acute osseous abnormality right knee. Reviewed, dictated and finalized at location A.
== END 2023-12-03 11:13 | disposition home or self-care (01) ==
LOC: ANHIMG 11:14
PROVIDERS: PCP Family Medicine; Visit Provider Physician Assistant
DX: M25.561 Pain in right knee (principal); L40.50 Arthropathic psoriasis, unspecified
CPT/HCPCS: 73564

== ENCOUNTER 2024-06-20 09:18 | Outpatient (CLI) | payer BC, SELFPAY | END 2024-06-20 09:19 | disposition home or self-care (01) | LOC: MICIMG 09:19 | PROVIDERS: PCP Family Medicine; Visit Provider Physician Assistant | DX: M25.511 Pain in right shoulder (principal) | CPT/HCPCS: 73030 ==

== ENCOUNTER 2024-07-04 08:34 | Outpatient (CLI) | payer BC, SELFPAY ==
--- NOTE | ~2024-07-04 | MR_ITS ---
MRI of the right shoulder Technique: Axial proton-density fat-sat images, coronal proton density fat-sat and T2 fat-sat images, and sagittal T1-weighted and T2 fat-sat images were acquired. Clinical History: Pain Findings: There is moderate AC joint degenerative change, bony productive change at the distal clavic le and acromion. Coracoclavicular, coracoacromial, and coracohumeral ligament are intact. Supraspinatus and infraspinatus tendons demonstrate mild to moderate tendinosis. There is focal low t o moderate grade interstitial tear at the very distal infraspinatus tendon insertion. Subscapularis t endon is intact with mild tendinosis. Tendon of the long head of the biceps is intact. No labral tear evident. Inferior glenohumeral ligament is thickened. No degenerative change or effusion of the glenohumeral j oint. There is a small amount of fluid in the subacromial/subdeltoid bursa. No muscle atrophy or samantha a. Impression: Focal low to moderate grade interstitial tear of the distal infraspinatus tendon insertion region. Ba ckground mild rotator cuff tendinosis. Subacromial/subdeltoid bursitis. Moderate AC joint degenerative change. Reviewed, dictated and finalized at location . Impression: Focal low to moderate grade interstitial tear of the distal infraspinatus tendo n insertion region. Background mild rotator cuff tendinosis. Subacromial/subdeltoid bursitis. Moderate AC joint degenerative change.
--- NOTE | ~2024-07-04 | XR_ITS ---
EXAMINATION: [id number] DATE: 07/04/2024 09:14 INDICATION: Neck pain. TECHNIQUE: 4 views of cervical spine were obtained. COMPARISON: Cervical spine radiographs 05/26/2020 FINDINGS: There is 3 degrees levocurvature of cervical spine. There are changes of disc replacement a t C6-C7. Vertebral body heights are normal. Intervertebral disc heights are normal. There is multilev el mild facet joint osteoarthritis. There is mild right uncovertebral joint osteoarthritis at C3-C4. No central canal stenosis or prevertebral soft tissue swelling. IMPRESSION: 1. Disc replacement at C6-C7. 2. Mild cervical spondylosis. Reviewed, dictated and finalized at location L.
== END 2024-07-04 08:35 | disposition home or self-care (01) ==
LOC: MICIMG 08:35
PROVIDERS: PCP Student in an Organized Health Care Education/Training Program; Visit Provider Physician Assistant
DX: M50.223 Other cervical disc displacement at C6-C7 level (principal); M47.812 Spondylosis without myelopathy or radiculopathy, cervical region; S46.811A Strain of other muscles, fascia and tendons at shoulder and upper arm level, right arm, initial encounter; X58.XXXA Exposure to other specified factors, initial encounter; M75.101 Unspecified rotator cuff tear or rupture of right shoulder, not specified as traumatic; M75.51 Bursitis of right shoulder; M19.011 Primary osteoarthritis, right shoulder
CPT/HCPCS: 72040; 73221

== ENCOUNTER 2024-11-06 00:54 | Day surgery (SDC) | payer BC, SELFPAY ==
[2024-10-29 10:18] VITALS: BMI 36.3
--- NOTE | 2024-10-29 10:26 | PC.NURSE ---
Report to the Outpatient Waiting Room, entrance under the green pavilion located off [facility], at time _1130__ on date _11/06/24. Planned Procedure Time: _1330__.? Time changes happen often and if your time is changed the preop area will call you the afternoon before. - You and your visitor will be asked to self-screen and do not enter if you have any COVID symptoms. Please call surgeon if you need to reschedule. - A mask is optional within the hospital at this time. Patients may have clear liquids (water, carbonated beverages, clear teas, apple juice) until 3 hours prior to surgery with a maximum of 20 ounces. - No food from midnight until time of surgery and no smoking, or chewing tobacco (or any form of nicotine). No chewing gum, candy or mints. - Infants may have breast milk until 4 hours before surgery, infant formula 6 hours prior to surgery. - Children will be allowed to drink immediately following surgery.? If applicable, please bring a bottle or sippy cup to assist with drinking. Juice, water, soda, and popsicles are readily available.? For infants on formula, please bring formula the day of surgery.? Pacifiers are allowed. Take only the following medications with a SIP of water on the morning of surgery: NONE DO NOT STOP ANY OF YOUR OTHER PRESCRIPTION MEDICATIONS PRIOR TO SURGERY EXCEPT THE FOLLOWING Hold all vitamins and supplements for 3 days per anesthesiologist. Medications to discontinue per physician STOPPING NAPROXEN 1WEEK PRIOR Date to take last dose Please no make-up, nail bengali, hairspray, perfume, deodorant, or body powder the day of surgery.? No jewelry (including any body piercings) or valuables the day of surgery, leave them at home.? Please take a shower or bath the night before, or the morning of, surgery with an antibacterial soap.? Wear comfortable, loose fitting clothing.? Children are encouraged to wear pajamas. - Jewelry must be removed prior to entering the operating room.? Rings and piercings that are not removed may be cut off. - The hospital will not accept responsibility for valuables.? - Please leave all valuables, including medications, at home the day of surgery. If you are going home after surgery, a licensed route sales delivery driver must drive you home.? - NO public transportation without another adult if you receive anesthesia. - We recommend that an adult stay with you for 24 hours following discharge. - We also recommend that you do not drive, make important decision, drink alcoholic beverages, or take any drugs that were not prescribed by your health care provider for at least 24 hours after your discharge time. For Pediatric surgeries, we recommend two adults accompany the child home. Follow any additional instructions given to you from your surgeon. Telephone instructions given to ___PATIENT__and asked if any additional questions and then verbalized understanding. Patient advised to call surgeon office or pre surgery nurse liaison [phone] if any additional questions.
[2024-11-06] VITALS (9 sets, daily range): BP systolic 120–167; BP diastolic 77–128; PULSE 76–86; RESP 10–20; TEMP 36.2; O2SAT 95–100
--- OUTSIDE RECORDS SUMMARY | 2024-11-06 00:57 | XMS_ITS | Clinical Summary ---
Author Organization [facility] Address [address] [place] [address] Care Team Providers Care Abalone Fisherman Name Role Phone West Tafoya MD Primary Care Provider [phone] Source Comments [facility],non-owned Affiliates and Associated Physician Practices is amultiple site organization consisting of ambulatory clinics and hospital sitesin [place], [place] and [place]. This disclosure is being madepursuant to the Care Everywhere program and may not contain all information available regarding this patient. Last updated 18.[facility] Allergies No known active allergies Medications * Be aware that medications may not be up to date on this document. Alwaysverify current medications with the patient. busPIRone (BUSPAR) 5 MG tablet TAKE 1 TABLET BY MOUTH TWICE A DAY WITH MEALS 04/08/20 21 Active naproxen (NAPROSYN) 500 MG tablet TAKE 1 TABLET BY MOUTH TWICE A DAY NEEDED FOR PAIN 01/11/20 21 Active COSENTYX SENSOREADY, 300 MG, 150 MG/ML SOAJ 06/06/19 22 Active sertraline (ZOLOFT) 50 MG tablet TAKE 1 TABLET BY MOUTH EVERY DAY IN THE MORNING 04/11/20 21 Active sertraline (ZOLOFT) 25 MG tablet TAKE 1 TABLET BY MOUTH EVERY DAY IN THE MORNING 05/21/19 22 Active valACYclovir (VALTREX) 500 MG tablet PLEASE SEE ATTACHED FOR DETAILED DIRECTIONS 05/25/19 22 Active NEEDLE, DISP, 23 G 23G X 1-1/2 MISC For injection every 2 weeks 50 Each 5 07/22/19 23 Active SYRINGE-NEEDLE , DISP, 3 ML (B-D 3CC LUER-FREDI SYR 23UF6-8/2) 23G X 1-1/2 3 ML MISC FOR INJECTION EVERY 2 WEEKS 100 Each 14 11/09/19 24 Active hydrocortisone (Hytone) 2.5 % ointment APPLY TO AFFECTED AREAS TWICE DAILY NEEDED FOR FLARES 09/03/19 25 Active propranolol (Inderal) 10 MG tablet 1 tablet on an empty stomach Orally every 12 hrs for 30 day(s) Active traZODone (Desyrel) 50 MG tablet Take 1 (one) tablet by mouth Active testosterone cypionate (Depo-Testoste dannie) 200 MG/ML injection Inject 0.1 mL subcutaneously Two times a week 12 mL 5 09/24/19 25 Active Syringe, Disposable, 1 ML MISC For injection twice a week 60 Each 5 09/24/19 25 Active NEEDLE, DISP, 27 G 27G X 1/2 MISC For injection twice a week 50 Each 3 09/24/19 25 Active Bimekizumab-bk zx (Bimzelx) 320 MG/2ML SOAJ Inject entire contents of one pen (2 mL) via subcutaneous route, rotating injection sites every 8 weeks for 56 days 09/10/19 25 025 Encounters Date Type Department Care Team Description 09/23/2024 8:40 AM CDT Office Visit [facility] - Endocrinology [address] [address] Ignacio August MD Male hypogonadism (Primary Dx) 09/23/2024 Telephone [facility]ology [address] [place] [address] Ignacio August MD Med Question 09/12/2024 Orders Only [facility] [address] [place] [address] Ignacio August MD from Last 3 Months Immunizations Immunization Administration Dates Next Due INFLUENZA VACCINE 02/09/2021 Family History Medical History Relation Name Comments Cancer Father Hypertension Father COPD - Chronic Obstructive Pulmonary Disease Mother CVA Mother Relation Name Status Comments Father Mother Social History Tobacco Use Types Packs/Day Years Used Date Smoking Tobacco: Smoker, Current Status Unknown Cigars Smokeless Tobacco: Never Tobacco Cessation:Ready to Q uit: Not Asked; Counseling Given: Not Answered Comments:1 per month Alcohol Use Standard Drinks/Week Comments Yes 1 (1 standard drink = 0.6 oz pur e alcohol) per week Sex and Gender Information Value Date Recorded Sex Assigned at Not on file Legal Sex Male 9:26 AM CDT Gender Identity Not on file Sexual Orientation Not on file Last Filed Vital Signs Vital Sign Reading Time Taken Comments Blood Pressure 154/97 09/23/2024 9:00 AM CDT Pulse 80 09/23/2024 8:53 AM CDT Temperature 36.7 C (98.1 F) 06/13/2021 8:07 AM NUT CULLER Respiratory Rate - - Oxygen Saturation 95% 09/23/2024 8:53 AM CDT Inhaled Oxygen Concentration - - Weight 124.7 kg (275 lb) 09/23/2024 8:53 AM CDT Height 180.3 cm (5' 11) 09/23/2024 8:53 AM CDT Body Mass Index 38.35 09/23/2024 8:53 AM CDT Plan of Treatment Upcoming Encounters Date Type Department Care Team (Late st Contact Info) Description 02/24/2025 8:20 AM NUT CULLER Office Visit [facility] - Endocrinology [address] [place] [address] Ignacio August MD [address] [place] [address] Health Maintenance Due Date Last Done Comments HIV SCREENING 2001 HEPATITIS C SCREENING 08/13/2004 DTAP/TDAP/TD VACCINES (1 - Tdap) 2005 HEPATITIS B VACCINE (1 of 3 - 19+ 3-dose series) 2005 PNEUMOCOCCAL VACCINE (1 of 2 - PCV) 2005 HPV VACCINE (1 - 3-dose SCDM series) 2013 COVID-19 VACCINE ( - season) 2023 02/25/2021, 06/28/2020 DEPRESSION SCREENING 04/23/2024 INFLUENZA VACCINE (#1) 2024 2, 02/09/2021, 03/12/2019, Additional history exists ZOSTER VACCINE (1 of 2) 2036 HIB VACCINE Aged Out No longer eligi ble based on patient's age to complete this topic MENINGOCOCCAL (Group B) VACCINE SHARED DECISION-MAKING Aged Out No longer eligible based on patient's age to complete this topic MENINGOCOCCAL GROUPS A/C/Y/W VACCINE Aged Out No longer eligible based on patient's age to complete this topic Procedures Procedure Name Priority Date/Time Associated Diagnosis Comments CBC W AUTO DIFFERENTIAL 09/12/2024 1:28 PM CDT TESTOSTERONE FREE+TOTAL EQUIL LC/MS 09/12/2024 1:28 PM CDT from Last 3 Months Results * (ABNORMAL) TESTOSTERONE FREE+TOTAL EQUIL LC/MS (09/12/2024 1:28 PM CDT) [facility] Testosterone Total MS 723 250 - 1100 ng/dL [facility] Comment: For additional information, please refer to [email or web address].[employer]/faq/ZVU102 (This link is being provided for informational/educational purposes only.) (Note) This test was developed and its analytical performance characteristics have been determined by [employer]. It has not been cleared or approved by the FDA. This assay has been validated pursuant to the CLIA regulations and is used for clinical purposes. Testosterone Free 222.8(H) 35.0 - 155.0 pg/mL [facility] Comment: (Note) This test was developed and its analytical performance characteristics have been determined by [employer]. It has not been cleared or approved by the FDA. This assay has been validated pursuant to the CLIA regulations and is used for clinical purposes. [facility] [address] [place] [address],[address] [facility] [id number] Sbarina Grove MD, PhD Sex Hormone Binding Globulin 8(L) 10 - 50 nmol/L [facility] Comment: Test Performed at: [facility] [address] [facility] [address] [place] [address] SABRINA GROVE MD,PHD 09/12/2024 1:28 PM CDT 09/12/2024 1:28 PM CDT Ignacio August MD LAB - CHEMISTRY ORDERABLES Fi nal Result [place] [address] [place] [address] * (ABNORMAL) CBC WITH DIFFERENTIAL (09/12/2024 1:28 PM CDT) White Blood Cell Count 9.4 3.8 - 10.8 Thousand/ uL [facility] RBC 6.21(H) 4.20 - 5.80 Million/u L [facility] Hemoglobin 18.4(H) 13.2 - 17.1 g/dL [facility] Hematocrit 56.9(H) 38.5 - 50.0 % [facility] MCV 91.6 80.0 - 100.0 fL [facility] MCH 29.6 27.0 - 33.0 pg [facility] MCHC 32.3 32.0 - 36.0 g/dL [facility] Comment: For adults, a slight decrease in the calculated MCHC value (in the range of 30 to 32 g/dL) is most likely not clinically significant; however, it should be interpreted with caution in correlation with other red cell parameters and the patient's clinical condition. RDW 13.3 11.0 - 15.0 % [facility] Platelet Count 291 140 - 400 Thousand/ uL [facility] MPV 9.8 7.5 - 12.5 fL [facility] Neutrophil Absolute 5687 1500 - 7800 cells/uL [facility] Lymphocytes Absolute 2613 850 - 3900 cells/uL [facility] Absolute Monocytes 855 200 - 950 cells/uL [facility] Eosinophils Absolute 141 15 - 500 cells/uL [facility] Basophils Absolute 103 0 - 200 cells/uL [facility] Granulocytes % 60.5 % [facility] Lymphocytes % 27.8 % [facility] Monocytes % 9.1 % [facility] Eosinophils % 1.5 % [facility] Basophils % 1.1 % [facility] Comment: REPORT COMMENT: FASTING:NO Test Performed at: [facility] [address] [place] [address] BAUDILIO VACA MD 09/12/2024 1:28 PM CDT 09/12/2024 1:28 PM CDT Ignacio August MD LAB - HEMATOLOGY ORDERABLES F inal Result [facility] [address] [place] [address] from Last 3 Months Insurance ANTHEM Care Teams Abalone Fisherman Relationship Specialty Start Date End Date West Tafoya MD [address] [place] [address] PCP - General 08/05/21
--- OUTSIDE RECORDS SUMMARY | 2024-11-06 00:57 | XMS_ITS | Clinical Summary ---
Author Organization [facility] Care Team Providers Care Wood Turning Lathe Operator Name Role Phone Unavailable Primary Care Provider Unavailabl e Social History Tobacco Use Types Packs/Day Years Used Date Smoking Tobacco: Never Assessed Sex and Gender Information Value Date Recorded Sex Assigned at Not on file Legal Sex Male 3:30 PM SAMPLING EXPERT Gender Identity Not on file Sexual Orientation Not on file Plan of Treatment Health Maintenance Due Date Last Done Comments Hepatitis C Virus (HCV) Screening 1986 Hepatitis B Immunization (1 of 3 - 19+ 3-dose series) 2005 Influenza Immunization (#1) 12/23/202301/21, 01/24/2020, 02/08/2019, Additional history exists SARS-COV-2 Immunization ( season) 2023 02/25/2021, 06/28/2020 Respiratory Syncytial Virus (RSV) Immunization (Adult) (1 - 1-dose 75+ series) 2061 DTaP/Tdap/Td Immunization Discontinued 03/26/2021 TdaP Immunization Completed 03/26/2021 Meningococcal Immunization (ACWY) Aged Out No longer eligible based on patient's age to complete this topic Pneumococcal Immunization Combined Aged Out No longer eligible based on patient's age to complete this topic Rotavirus Immunization Aged Out No lo nger eligible based on patient's age to complete this topic
--- OUTSIDE RECORDS SUMMARY | 2024-11-06 00:57 | XMS_ITS | Encounter Summary ---
Author Organization [facility] Address [address] [place] [address] Care Team Providers Care Customer Energy Specialist Name Role Phone West Tafoya MD Primary Care Provider [phone] Reason for Visit * Reason Onset Date Comments MEDICATION REFILL 08/24/2023 Encounter Details Date Type Department Care Team (Late st Contact Info) Description 08/24/2023 Refill [facility] - Endocrinology [address] [place] [address], [facility] [place] [phone] Ignacio August MD [address] [place] [id number] MEDICATION REFILL Social History Tobacco Use Types Packs/Day Years Used Date Smoking Tobacco: Smoker, Current Status Unknown Cigars Smokeless Tobacco: Never Comments:1 per month Alcohol Use Standard Drinks/Week Comments Yes 1 (1 standard drink = 0.6 oz pur e alcohol) per week Sex and Gender Information Value Date Recorded Sex Assigned at Not on file Legal Sex Male 9:26 AM CDT Gender Identity Not on file Sexual Orientation Not on file documented as of this encounter Miscellaneous Notes * Telephone Encounter - Denita Loo - 08/24/2023 1:43 PM CDT documented in this encounter Plan of Treatment Upcoming Encounters Date Type Department Care Team (Late st Contact Info) Description 02/24/2025 8:20 AM ORGANIC LAB WORKER Office Visit [facility] - Endocrinology [address] [place] [address] Ignacio August MD [address] [place] [address] documented as of this encounter Visit Diagnoses Not on filedocumented in this encounter Care Teams Customer Energy Specialist Relationship Specialty Start Date End Date West Tafoya MD [address] [place] [address] PCP - General 08/05/21 documented as of this encounter
--- OUTSIDE RECORDS SUMMARY | 2024-11-06 00:57 | XMS_ITS | Encounter Summary ---
Author Organization [facility] Address [address] [facility] [place] [address] Care Team Providers Care Sed Middle School Teacher Name Role Phone West Tafoya MD Primary Care Provider [phone] Encounter Details Date Type Department Care Team (Late st Contact Info) Description 07/29/2021 Telephone [facility] Metabolism [address] [place] [address], [place] [address] Ignacio August MD [address] [place] [address] [place] [address] Social History Tobacco Use Types Packs/Day Years [...] encounter Miscellaneous Notes * Telephone Encounter - Georgia Mosquera - 07/29/2021 12:52 PM CDT Current Provider name: Dr. Ignacio Peter Reason for call: Mr. Dwayne Tafoya called re: test results two weeks after his initial appt 06/13/2021 for hypogonadism. He'd like a call to review his results Thanks. Patient Call Back number: [phone] documented in this encounter Plan of Treatment Upcoming Encounters Date Type Department Care Team (Late st Contact Info) Description 02/24/2025 8:20 AM RESIN REMOVER Office Visit [facility] - Endocrinology [address] [address] Ignacio August MD [address] [place] [address] documented as of this encounter Visit Diagnoses Not on filedocumented in this encounter Care Teams Sed Middle School Teacher Relationship Specialty Start Date End Date West Tafoya MD [address] [place] [address] PCP - General 08/05/21 documented as of this encounter
--- OUTSIDE RECORDS SUMMARY | 2024-11-06 00:57 | XMS_ITS | Clinical Summary ---
Author Organization [facility] Address [facility] [address] [place] [address] Care Team Providers Care Therapist Asst Name Role Phone West Tafoya MD Primary Care Provider [phone] Allergies No known active allergies Medications busPIRone 10 MG tablet Take 10 mg by mouth daily. Active SERTRALINE HCL OR Take 75 mg by mouth daily. Active valACYclovir 500 MG tablet Take 500 mg by mouth daily. Active Multiple Vitamin (MULTIVITAMIN ADULT OR) Take 1 tablet by mouth daily. Active docusate sodium 100 MG capsule Take 100 mg by mouth daily. Active cetirizine 10 MG chewable tablet Chew 10 mg by mouth daily. Active HYDROcodone-tania taminophen 5-325 MG tabletIndicatio ns:Acute Pain < 7 Day Supply,Post op Take 1-2 tablets by mouth every 4 (four) hours as needed for Pain. Indications: Acute Pain < 7 Day Supply, Post op 45 tablet 1 Active senna-docusate 8.6-50 MG tablet Take 1 tablet by mouth nightly as needed for Constipation (May repeat X 1 if no BM or discomfort). 60 tablet 1 1 Active Active Problems Problem Noted Date Diagnosed Date Herniated nucleus pulposus, C6-7 04/19/2021 Family History Medical History Relation Comments Cancer Father Hypertension Father Relation Status Comments Brother Alive Father Mother Alive Social History Tobacco Use Types Packs/Day Years Used Date Smoking Tobacco: Never Smokeless Tobacco: Never Alcohol Use Standard Drinks/Week Comments Not Currently 0 (1 standard drink = 0.6 oz pur e alcohol) Sex and Gender Information Value Date Recorded Sex Assigned at Not on file Legal Sex Male 10:04 AM GOLF COURSE ARCHITECT Gender Identity Not on file Sexual Orientation Not on file Last Filed Vital Signs Vital Sign Reading Time Taken Comments Blood Pressure 145/76 04/19/2021 4:15 AM GOLF COURSE ARCHITECT Pulse 105 04/19/2021 4:15 AM GOLF COURSE ARCHITECT Temperature 36.6 C (97.8 F) 04/19/2021 4:15 AM GOLF COURSE ARCHITECT Respiratory Rate 12 04/19/2021 4:15 AM GOLF COURSE ARCHITECT Oxygen Saturation 91% 04/19/2021 4:15 AM GOLF COURSE ARCHITECT Inhaled Oxygen Concentration - - Weight 110.5 kg (243 lb 9.7 oz) 021 10:00 AM GOLF COURSE ARCHITECT Height 180.3 cm (5' 11) 04/18/2021 10: 00 AM GOLF COURSE ARCHITECT Body Mass Index 33.98 04/18/2021 10:00 AM GOLF COURSE ARCHITECT Plan of Treatment Health Maintenance Due Date Last Done Comments Annual Physical 1989 Hepatitis C 2004 Hepatitis B Vaccines (1 of 3 - 19+ 3-dose series) 2005 COVID-19 Vaccine (2023-2 5 season) 2023 02/25/2021, 06/28/2020 DTaP, Tdap and Td Vaccines ( 2 - Td or Tdap) 03/26/2031 03/26/2021 HPV Vaccines Aged Out No longer eligi ble based on patient's age to complete this topic Meningococcal B Vaccine Aged Out No l onger eligible based on patient's age to complete this topic Meningococcal Vaccine Aged Out No angy denny eligible based on patient's age to complete this topic Pneumococcal Vaccine: Pediatrics (0 to 5 Years) and At-Risk Patients (6 to 49 Years) Aged Out No longer eligible b ased on patient's age to complete this topic RSV Immunizations Under 20 Months Aged Out No longer eligible b ased on patient's age to complete this topic Goals Goal Patient Goal Type Associated Problems Recent Progress Patient-Stated? Author Safety - demonstrates understanding of home safety measures General No Shila Wagner RN Medical Devices Implanted Type Area Service Advisor Device Identifier Shelf Expiration Date Model / Serial / Lot Prestige Lp Cervical Disc Implanted:Qty : 1 on 04/18/2021 by Alfredo Aponte MD at [facility] Right: Spine Cervical [id number] 02/20/2028 / / [id number] Explanted Type Area Service Advisor Device Identifier Shelf Expiration Date Model / Serial / Lot Distration Pin 12mm - [id number] Explanted:Qty: 1 on 04/18/2021 by Alfredo Aponte MD at [facility] Pin Right: Spine Cervical [employer] DP-12-TB / / Distration Pin 12mm - [id number] Explanted:Qty: 1 on 04/18/2021 at [facility] Pin Right: Spine Cervical [employer] DP-12-TB / / Insurance [facility] Advance Directives * Full Code (Latest Code Status on File) Date Activated Date Inactivated Comments 04/18/2021 7:02 PM 04/19/2021 2:39 PM Care Teams Therapist Asst Relationship Specialty Start Date End Date West Tafoya MD [address] [place] [address] PCP - General FAMILY PRACTICE 04/12/21
--- NOTE | 2024-11-06 07:14 | WPDHPUPDATE1 ---
History and Physical Update Update Date/Time: 11/06/24 07:14 History and Physical has been reviewed, including an updated exam of the patient. There are NO changes in the patient's condition. Risks, benefits, and alternatives have been discussed and questions answered. Patient agrees to proceed with procedure.
--- NOTE | 2024-11-06 09:57 | P.PNAN_ITS ---
Anes - Initial Pre Proc Eval Procedure: Operation Date: 11/06/24 10:30 Proposed Procedures p Right Shoulder Arthroscopy, Rotator Cuff Repair, Proceed as Indicated - Oneil Chaidez MD Date/Time: 11/06/24 09:57 Surgeon: Oneil Chaidez MD Pre Op Diagnosis: right shoulder partial rot. cuff tear Patient Data Age: 39 Gender: M Height: 1.8 m Weight: 122.3 kg Last Vital Signs Temp 36.2 C L 11/06/24 09:30 Pulse 78 11/06/24 09:30 Resp 16 11/06/24 09:30 BP 128/81 11/06/24 09:30 Pulse Ox 95 11/06/24 09:30 O2 Del Method Room Air 11/06/24 09:30 Allergies Allergy/AdvReac Type Severity Reaction Status Date / Time No Known Allergies Allergy Verified 11/06/24 09:49 Home Medications ?Medication ?Instructions ?Recorded ?Confirmed ?Type sertraline 25 mg tablet 25 mg PO HS 01/14/20 11/06/24 History sertraline 50 mg tablet 50 mg PO HS 01/14/20 11/06/24 History multivitamin with minerals-folic 1 tablet PO DAILY 11/18/21 11/06/24 History acid 0.4 mg tablet trazodone 50 mg tablet 50 mg PO HS sleep 11/25/21 10/29/24 History testosterone cypionate 200 mg/mL 70 mg IM 2XW 09/21/23 10/29/24 History intramuscular oil valacyclovir 500 mg tablet See Rx Instructions .Route 07/21/24 11/06/24 Rx .COMPLEX #99 tabs bimekizumab-bkzx 320 mg/2 mL 320 mg subcut MONTHLY 10/29/24 10/29/24 History subcutaneous auto-injector (Bimzelx Autoinjector) naproxen 500 mg tablet,delayed 500 mg PO DAILY 10/29/24 10/29/24 History release (EC-Naproxen) Patient hx anesthesia problems: none Family hx anesthesia problems: none Results Review: All pre-operative results and documents have been reviewed as part of the pre- operative evaluation. [facility] Past Medical History Medical History Asthma Anxiety Depression Obesity, Class II, BMI 35-39.9 Wellness examination Psoriasis External hemorrhoid [place]at[place]us Family history of colon cancer Surgical History Surgical History History of elbow surgery 11/25/21. Right elbow olecranon exostosis excision History of elbow surgery (~08/23/23) 08/23/23. Left elbow olecranon exostosis excision History of cornea transplant (~02/12/17) Hx of neck surgery (~04/18/21) Mar -C6-7 titanium disc History of laparoscopic appendectomy 01/14/2020 Corneal transplant status Family History Family History Grandparent Family history of pancreatic cancer Family history of throat cancer Father Carcinoma of colon Hypertension Social History Social History Years smoked: 2 Smoking status: Never smoker Tobacco type: cigars Alcohol intake: current Drinks per week: 1 Substance use: never Substance use type: does not use Do You Feel Safe in your Home?: Yes Lack of Transportation: No Lack of Food: Never True Current Housing: I Have Housing Concerned About Future Housing: No Difficulty Paying Gas/Electric Bills: No Difficulty Paying for Meds: No Currently Unemployed: No Education: Master's Degree or Higher Difficulty w/ Childcare or Family Care: No Living arrangements: with family Occupation/Education: occupation Gender identity (if verbalized by the patient): Male Sexual Orientation (if Verbalized by the Patient): Straight or Heterosexual Spiritual care concerns: No Anes - Eval Final PreProcedure Day of Procedure 11/06/24 09:57 Patient weight: obese Heart: regular rate and rhythm Lungs: clear to auscultation Airway: Mallampati scale class III Neurological: alert and oriented Last oral intake: >/= 8 hours ASA classification: II Emergent: no Anesthetic plan: proceed Anesthesia type and monitoring: general ETT and standard monitoring Results Review: All pre-operative results and documents have been reviewed as part of the pre- operative evaluation. Informed Consent: The patient's anesthetic plan and its attendant risks and benefits were discussed with the patient/family/POA. Questions were solicited and answers provided to the satisfaction of the patient/family/POA.
[2024-11-06] MEDS: KETOROLAC 15 MG/ML VIAL (*BKC) IV PUSH (10:00)
[2024-11-06] MEDS: LACTATED RINGERS 1,000 ML 30 ML IV CONT ×2 (10:00→11:57)
[2024-11-06] MEDS: ACETAMINOPHEN 500 MG TABLET 1000 MG PO (10:00)
--- NOTE | 2024-11-06 10:18 | WPDANESPNB ---
Anes - Peripheral Nerve Block Date/Time: 11/06/24 10:18 I have discussed with the patient/family/POA the placement of a peripheral nerve block for post-operative pain management, including associated risks, benefits, complications, and side effects. Alternative methods of post-operative analgesia were detailed. Questions were solicited and answers provided to the satisfaction of the patient/family/POA. Time-Out: A pre-procedural Time-Out was completed immediately before starting the procedure and confirmed: Patient Identification, Site, Procedure, Patient Position and the Availability of Requisite Equipment. Clinical Indications: Acute post-operative pain management requested by the operative surgeon. Nerve Block Insertion Note Anes-nerve block: interscalene Patient position: supine Skin prep: chlorhexidine Needle: 22 gauge, stimulating, insulated echogenic needle. Needle length: 50 mm Technique: ultrasound Injectate: bupivacaine 0.5% with epi 5 mcg/ml (20cc- no epi) Observations: tolerated well Complications: none Procedure start time:: 1009 Procedure end time:: 2
[2024-11-06] MEDS: ceFAZolin 3 GM/D5W 100 ML 100 ML IVPB (10:21)
[2024-11-06] MEDS: ceFAZolin 2 GM in SODIUM CHLORIDE 0.9% IV 50 ML 100 ML IVPB (11:03)
--- NOTE | 2024-11-06 11:42 | P.OP_ITS ---
Procedure Note - Detailed Date of Procedure 11/06/24 Pre-op Diagnosis Right shoulder partial rot. cuff tear Post-op Diagnosis Other (Right shoulder partial articular side supraspinatus and infraspinatus rotator cuff tear, mid-grade (A2/3)) Procedure Performed 1. Arthroscopic rotator cuff repair with Regeneten collagen implant 6 ROXANE soft tissue anchors and 2 peek bone anchors. 2. Subacromial decompression Surgeon Oneil Chaidez MD Anesthesia General and Regional (Interscalene block) Findings Significant mid grade articular tear confirmed. Proximally 40%. Fairly wide involvement over 1 year. No other significant articular findings other than hyperemia of the capsule. Mild bursal fraying and evidence of anterolateral impingement on the acromion. The anterolateral acromial bone was resected using the arthroscopic bur. 0 previously the tear and biceps were marked S suture. The large Regeneten collagen graft was placed over the involved tendon and lateral greater tuberosity. Fixation with 5 ROXANE soft tissue anchors and 2 peek bone anchors. Description of Procedure Preoperative antibiotics were given. The patient was brought to the operating room. Careful positioning in the beach chair was accomplished. The head neck were carefully positioned. A small bump was placed under the shoulder. The shoulder was prepped and draped in the usual sterile fashion. Examination under anesthesia performed. No significant abnormal findings on examination other than obesity. Very muscular. Standard posterior and anterior arthroscopic portals were established. The glenohumeral joint showed normal articular cartilage biceps labrum. An articular tear of the supraspinatus was of the grade 2/Iii with approximately 30-40% involvement. He it was marked with a spinal needle and PDS suture. Tissue on the bursal side felt robust and healthy. The biceps was also marked with a PDS suture to prevent inadvertent biceps fixation later. Attention was turned to the subacromial space. A complete bursectomy was performed. The bursa was moderately hypertrophic. There was some fraying on the bursal cuff mildly. There was some evidence of anterolateral contact on the acromion. Acromioplasty was performed with the arthroscopic bur. An accessory lateral portal was created. The large collagen graft was inserted over the defect in the tendon and lateral greater tuberosity. Sedation was initiated with ROXANE the soft tissue anchors medially. Peek anchors were placed in the anterolateral and posterolateral corner of the implant. The defect was nicely covered with good tension on the graft. The arthroscopic instruments were removed. The wounds were closed with interrupted 4-0 Monocryl suture followed by Steri-Strips. A sterile dressing was applied with a sling. The patient was extubated and brought to the recovery room in stable condition. There were no complications. Implants [employer] Regeneten collagen implant, large size. Five ROXANE soft tissue anchors. Two peek bone anchors. Estimated Blood Loss 10 Drains No Packing No Pathology None sent Complications No immediate complications Condition Stable Disposition PACU [facility] Billing Surgery - Charge Forward: Surgery Billing
== END 2024-11-06 13:58 | disposition home or self-care (01) ==
PROVIDERS: PCP Student in an Organized Health Care Education/Training Program; Visit Provider Orthopaedic Surgery
PROC: (CPT 29805; principal; 2024-11-06 10:30)
DX: M75.111 Incomplete rotator cuff tear or rupture of right shoulder, not specified as traumatic (principal); G89.18 Other acute postprocedural pain; E66.9 Obesity, unspecified; Z68.37 Body mass index [BMI] 37.0-37.9, adult
CPT/HCPCS: 29827; 29826; 64415; J0690; A4565; A9270; C1713; J0166; J1100; J1885; J2250; J2405; J2704; J3010; J7120